=== PATIENT | male | born 1950 | race Caucasian/White ===

== ENCOUNTER → 2018-08-20 14:32 | Outpatient (CLI) | payer MEDICARE, OTHER, SELFPAY | PROVIDERS: PCP Family Medicine; Visit Provider Family Medicine | DX: R01.1 Cardiac murmur, unspecified (principal) | CPT/HCPCS: 93306 ==

== ENCOUNTER → 2020-04-08 15:00 | Outpatient (CLI) | payer MEDICARE, OTHER, SELFPAY ==
--- NOTE | 2020-04-08 15:26 | CT_ITS ---
PROCEDURE: CT SHOULDER RT WO CON CLINICAL HISTORY: RT SHOULDER PAIN right shoulder pain x 6 months no injury no prior COMPARISON: No exams were available for comparison TECHNIQUE: Axial images obtained with sagittal and coronal reformats. All CT scans at the facility use one or more dose reduction, viz: automated exposure control, ma/kV adjustment per patient size (including targeted exams where dose is matched to indication, i.e. head), or iterative reconstruction technique. FINDINGS: No fracture or dislocation. No lytic or blastic change. There are mild osteoarthritic changes of the glenohumeral joint. There is slightly high riding humeral head with subacromial stenosis. This may be seen with rotator cuff disease. Rotator cuff is not adequately evaluated on this exam and may be better evaluated with MRI or CT arthrography if clinically desired. No large effusions. No soft tissue masses. The acromioclavicular joint has an unremarkable appearance. IMPRESSION: 1. No acute fracture. 2. Mild subacromial stenosis which could be seen with rotator cuff disease which could be better evaluated with MRI or CT arthrography 3. Mild osteoarthritic change of the glenohumeral joint Dictated by: Lee Tripathi MD 04/10/2020 08:48 Lee Tripathi MD in [place] 04/10/2020 08:48
== END ==
PROVIDERS: PCP Family Medicine; Visit Provider Family Medicine
DX: M25.511 Pain in right shoulder (principal)
CPT/HCPCS: 73200

== ENCOUNTER → 2020-05-12 16:59 | Outpatient (CLI) | payer MEDICARE, OTHER, SELFPAY ==
--- NOTE | 2020-05-12 17:10 | MR_ITS ---
PROCEDURE: MR SHOULDER RT WO CON CLINICAL INDICATION: CHRONIC RT SHOULDER PAIN CHRONIC RIGHT SHOULDER PAIN X7-8 MONTHS, NO INJURY. PRIOR CT 04-08-20 COMPARISON: CT CT SHOULDER RT WO CON from 04/08/2020 TECHNIQUE: Routine multiplanar multi echo sequences are performed without gadolinium enhancement. FINDINGS: There is acromioclavicular arthropathy with downsloping acromion. There is thickening the supraspinatus tendon distally with full-thickness tear of the supraspinatus tendon distally.. There are few intact deep fibers posteriorly.. The infraspinatus tendon is slightly thickened with some increased T2 signal distally suggesting partial tear. There is focal increased T2 signal at the greater tuberosity at the infraspinatus insertion. The subscapularis shows some thickening. The teres minor tendon is intact. There is a tear of the anterior glenoid labrum at 3 o'clock position. Bicipital tendon appears in place. A small subchondral cyst is present at the base of the greater tuberosity. IMPRESSION: 1. Full-thickness tear of the supraspinatus tendon distally with some intact deep fibers posteriorly 2. 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 There is a small tear involving the anterior glenoid labrum at the 3 o'clock position. Dictated by: Lee Tripathi MD 05/14/2020 13:29 Lee Tripathi MD in [place] 05/14/2020 13:29
== END ==
PROVIDERS: PCP Family Medicine; Visit Provider Family Medicine
DX: M25.511 Pain in right shoulder (principal)
CPT/HCPCS: 73221

== ENCOUNTER 2020-07-05 08:00 | Outpatient (RCR) | payer MEDICARE, OTHER, SELFPAY | END 2020-08-02 17:00 | disposition home or self-care (01) | LOC: PT.CARL 08:00 | PROVIDERS: PCP Family Medicine; Visit Provider Orthopaedic Surgery | DX: M67.813 Other specified disorders of tendon, right shoulder (principal) | CPT/HCPCS: 97010; 97014; 97033; 97035; 97110; 97140; 97163; G0283 ==

== ENCOUNTER → 2023-02-01 09:09 | Outpatient (CLI) | payer MEDICARE, OTHER, SELFPAY ==
--- NOTE | 2023-02-01 09:15 | XR_ITS ---
FINAL REPORT CLINICAL HISTORY: RT HEEL PAIN COMPARISON: None FINDINGS: AP, oblique and lateral views of the right foot were obtained. There is no prior exam for comparison. There is no acute fracture or dislocation. The joint spaces are preserved. Soft tissues are normal. There is a prominent inferior calcaneal spur present. IMPRESSION: No acute osseous abnormality of the right foot. Prominent inferior calcaneal spur. Reviewed, Interpreted and Dictated by Liat Pack MD Transcribed by Zaria Rod Authenticated and [facility]
== END ==
PROVIDERS: PCP Family Medicine; Visit Provider Family Medicine
DX: M72.2 Plantar fascial fibromatosis (principal)
CPT/HCPCS: 73630

== ENCOUNTER 2023-05-10 07:58 | Outpatient (CLI) | payer MEDICARE, OTHER, SELFPAY ==
[2023-05-10 09:21] LABS: Blood Urea Nitrogen 19 mg/dl (9-20); Estimated Glomerular Filt Rate 73 ml/min (>60); GFR (African American) 89 ML/MIN (>60)
== END 2023-05-10 23:59 ==
LOC: LAB 08:01
PROVIDERS: PCP Nurse Practitioner; Visit Provider Nurse Practitioner
DX: Z01.812 Encounter for preprocedural laboratory examination (principal)
CPT/HCPCS: 36415; 82565; 84520

== ENCOUNTER 2023-05-13 13:41 | Outpatient (CLI) | payer MEDICARE, OTHER, SELFPAY ==
--- NOTE | 2023-05-13 13:46 | CT_ITS ---
FINAL REPORT TECHNIQUE: Thin section axial CT images were obtained through the neck after intravenous contrast administration. Coronal and sagittal reformats were also obtained. This study was performed with techniques to keep radiation doses as low as reasonably achievable (ALARA). Individualized dose reduction techniques using automated exposure control or adjustment of mA and/or kV according to the patient''s size were employed. CLINICAL HISTORY: LYMPHADENITIS COMPARISON: None FINDINGS: The nasopharynx, oropharynx, hypopharynx and larynx are unremarkable. There is no mass or adenopathy. The thyroid gland is unremarkable. There is bilateral mild mucosal thickening in the maxillary sinuses. Mild cervical degenerative changes present. In the upper thorax there is mild mediastinal adenopathy. There is a left prevascular node measuring 21 mm in size. There is a right paratracheal node seen at the level of the aortic arch measuring 16 mm in size. These may be reactive or may represent neoplasm. There is a 4 mm lateral left upper lobe nodule, noncalcified, seen in image #101. IMPRESSION: No significant cervical adenopathy identified. Upper thoracic adenopathy is seen as described, and the 2 nodes described may be reactive or neoplastic. 4 mm lateral left upper lobe nodule, noncalcified. Would recommend follow-up chest CT in 3 months. Reviewed, Interpreted and Dictated by John Green III, MD Transcribed by Zaria Rod Authenticated and [facility]
[2023-05-13] MEDS: IOPAMIDOL-370 (76%);100ML BOTTLE 75 ML IV (14:23)
[2023-05-13] MEDS: SODIUM CHLORIDE 0.9% 10ML SYR (RAD ONLY) 10 ML IV (14:23)
== END 2023-05-13 23:59 ==
LOC: RAD 13:41
PROVIDERS: PCP Family Medicine; Visit Provider Nurse Practitioner
DX: I88.9 Nonspecific lymphadenitis, unspecified (principal)
CPT/HCPCS: 70491; Q9967

== ENCOUNTER 2023-07-24 10:44 | Outpatient (CLI) | payer MEDICARE, OTHER, SELFPAY ==
--- NOTE | 2023-07-24 10:48 | XR_ITS ---
FINAL REPORT CLINICAL HISTORY: RT RIB PAIN FINDINGS: Two views of the chest were obtained. The heart size and pulmonary vascularity are within normal limits. The mediastinum is normal. No acute pulmonary abnormality is identified. There is no pneumothorax. The bony thorax is intact. IMPRESSION: No active cardiopulmonary disease. Reviewed, Interpreted and Dictated by John Green III, MD Transcribed by Sharda Banegas Authenticated and [facility]
== END 2023-07-24 23:59 ==
PROVIDERS: PCP Family Medicine; Visit Provider Family Medicine
DX: R07.81 Pleurodynia (principal)
CPT/HCPCS: 71046

== ENCOUNTER 2023-08-21 09:15 | Outpatient (CLI) | payer MEDICARE, OTHER, SELFPAY ==
--- NOTE | 2023-08-21 09:28 | CT_ITS ---
FINAL REPORT TECHNIQUE: After the administration of oral and intravenous contrast, axial images were obtained through the abdomen and pelvis by computed tomography. The study was performed with techniques to keep radiation dose as low as reasonably achievable, (ALARA). Individual dose reduction techniques using automated exposure control or adjustment of mA and/or kV according to the patient's size were employed. CLINICAL HISTORY: ABD PAIN,DAVID FLANK PAIN pain along anterior portion of diaphragm COMPARISON: None FINDINGS: Abdomen: The lung bases are clear. The liver parenchyma is homogeneous. The gallbladder is present. The spleen, pancreas, and adrenals appear unremarkable. There is a benign-appearing cyst in the lower pole of the right kidney measuring 3.6 x 2.8 cm in size. The aorta is normal in caliber. There is no free fluid or adenopathy. Pelvis: The appendix is normal in appearance. The urinary bladder is unremarkable. There is no free fluid or adenopathy. There is moderate enlargement of the prostate gland. IMPRESSION: Benign appearing cyst lower pole of the right kidney as described. Moderate enlargement of the prostate gland. Reviewed, Interpreted and Dictated by Jona Landa MD Transcribed by Zaria Rod Authenticated and [facility]
--- NOTE | 2023-08-21 09:31 | CT_ITS ---
FINAL REPORT TECHNIQUE: Routine axial images were obtained from the lung apices to below the diaphragm following IV contrast administration. Individualized dose reduction techniques using automated exposure control or adjustment of the mA and/or kV according to the patient size were employed. CLINICAL HISTORY: LYMPHADENITIS,ENLARGED LUMPH NODES pain along diaphragm COMPARISON: None FINDINGS: No acute lung disease is present. No pleural or pericardial effusion is seen. There are multiple moderately enlarged mediastinal lymph nodes noted, and an enlarged prevascular node measuring 2.3 cm in size, and a subcarinal node measuring 2.8 cm in size. No confluent infiltrates are identified. No focal nodules are present. No pleural or pericardial effusions are noted. No axillary adenopathy is present. There is mild scarring present at the lung bases. IMPRESSION: Multiple moderately enlarged mediastinal lymph nodes as described, measuring up to 2.8 cm in size. Would recommend follow-up chest CT in 1 to 3 months for further evaluation. Otherwise unremarkable CT examination of the chest. Reviewed, Interpreted and Dictated by Jona Landa MD Transcribed by Zaria Rod Authenticated and [facility]
[2023-08-21] MEDS: BARIUM SULFATE(READI-CAT2);450ML BOTTLE 450 ML PO (09:49)
[2023-08-21] MEDS: SODIUM CHLORIDE 0.9% 10ML SYR (RAD ONLY) 10 ML IV (09:50)
[2023-08-21] MEDS: IOPAMIDOL-370 (76%);100ML BOTTLE 75 ML IV (09:50)
== END 2023-08-21 23:59 ==
LOC: RAD 09:15
PROVIDERS: PCP Family Medicine; Visit Provider Family Medicine
DX: R10.9 Unspecified abdominal pain (principal)
CPT/HCPCS: 71260; 74177; Q9967

== ENCOUNTER 2024-10-27 07:51 | Day surgery (SDC) | payer MEDICARE, OTHER, SELFPAY ==
--- NOTE | 2024-10-26 13:47 | SUR.PREOP ---
1345:Pt stated that he took his prep a day early. Spoke with JANET in Dr. Talbot's office and was told he could take a dose of mag citrate tonight and continue his clear liquid diet. Message relayed to pt. Will proceed with colonoscopy in the AM.
[2024-10-27 08:17] VITALS: BP 162/74; PULSE 64; RESP 18; TEMP 36.3; O2SAT 97
[2024-10-27 08:28] VITALS: BMI 39.3
[2024-10-27] MEDS: LACTATED RINGERS 1000ML 1,000 ML 50 ML IV (08:31)
--- NOTE | 2024-10-27 08:32 | EXP.ANES.CKL ---
[facility] Disclaimer: The information contained in this section may have been updated after the patient was seen, as this information can be updated by other users. Medical History Sleep apnea Hypercholesterolemia Hypertension Family History Mother Heart disease Social History (Updated 10/27/24 @ 08:18 by Susan Trevizo RN) Smoking Status: Never smoker alcohol intake: never substance use type: denies use current occupational status: employed Travel in the last 8 weeks?: None [facility] Anesthesia Checklist Patient Identification Patient Identification: Arm Band Structural Data Admitted From: Home Planned Operative Procedure/s: Colonoscopy Consent for Planned Operative Procedure(s) Verified: Yes Verified Documents: Surgical Consent and History and Physical NPO Status Verified Time NPO: 00:00 Additional verifications Anesthesia Reactions: No Airway Assessment Mallampati Score:: Class II C-Spine Mobility Assessed: Yes TMJ Mobility Assessed: Yes Dentition: Good Dentition Neurological Assessment Level of Consciousness: Awake, Alert and Appropriate Anesthesia Plan Anesthesia Risk discussed: Yes Anesthesia Plan: Verified ASA Class: II Anesthesia Type: MAC
--- NOTE | 2024-10-27 08:51 | EXP.GEN.HP ---
HPI HPI HPI: This is a 74-year-old gentleman who presents for colonoscopy. He reports a recent [facility] positive study. He states that he has undergone colonoscopy in 2 separate occasions. He reports no history of polyps. [facility] Disclaimer: The information contained in this section may have been updated after the patient was seen, as this information can be updated by other users. Medical History (Updated 10/27/24 @ 08:54 by Terry Talbot MD) Sleep apnea Hypercholesterolemia Hypertension Family History Heart disease Mother Social History (Updated 10/27/24 @ 08:41 by Chemo Pratt CRNA) Smoking Status: Never smoker alcohol intake: never substance use type: denies use current occupational status: employed Travel in the last 8 weeks?: None Have you lived/traveled outside US in past 30 days?: No Contact w/someone who lives/traveled outside US past 30 days?: No Exposure to someone with infectious disease in past 14 days?: No Do you have a fever (greater than 100.4 F or 38 C)?: No Have you tested positive for COVID-19?: No Exposed to someone with COVID-19 in past 14 days?: No Do you have a sore throat?: No Do you have a cough?: No Do you have any weakness?: No Are you experiencing any nausea/vomitting?: No Do you have any diarrhea?: No Are you experiencing any unusual bleeding?: No Do you have any muscle aches/pain?: No Do you have any abdominal pain?: No Are you experiencing loss of taste or smell?: No Review of Systems Review of Systems Review of systems:: pertinent systems reviewed and negative unless documented below Meds Home Medications and Allergies Home Medications ?Medication ?Instructions ?Recorded ?Confirmed ?Type sodium sul 1.479 gram-potas ch See Rx Instructions PO PER PKG DIR 10/22/24 Rx 0.188 gram-magnes sul 0.225 gram #24 tabs tablet (Sutab) amlodipine 5 mg tablet 5 mg PO DAILY 10/27/24 10/27/24 History aspirin 325 mg capsule 325 mg PO DAILY 10/27/24 10/27/24 History atorvastatin 40 mg tablet 40 mg PO DAILY 10/27/24 10/27/24 History carvedilol 12.5 mg tablet 12.5 mg PO DAILY 10/27/24 10/27/24 History chlorthalidone 25 mg tablet 25 mg PO DAILY 10/27/24 10/27/24 History hydrochlorothiazide 12.5 mg capsule 12.5 mg PO DAILY 10/27/24 10/27/24 History losartan 100 mg tablet 100 mg PO DAILY 10/27/24 10/27/24 History New Prescriptions to Start Prescriptions: Allergies Allergy/AdvReac Type Severity Reaction Status Date / Time shellfish derived Allergy Rash Verified 10/27/24 08:32 Exam Data for Last 24 hours I & O for Last 24 hours: Intake & Output 10/24/24 10/25/24 10/26/24 10/27/24 11:59 11:59 11:59 11:59 Weight 290 lb Constitutional Constitutional: no acute distress *Routine HEENT Exam Head: Present normocephalic Eye: Present EOMI ENT: Present mucous membranes moist *Routine Neck Exam Neck: Present full ROM *Routine Respiratory Exam Respiratory: Absent respiratory distress *Routine Cardiovascular Exam Cardiovascular: Absent tachycardia *Routine Abdominal Exam Abdominal: Present soft *Routine Rectal Exam Rectal:: deferred *Routine Genitalia Exam Genitalia:: deferred *Routine Extremities Exam Extremities: Present full ROM *Routine Skin Exam Skin: Absent erythema *Routine Neurological Exam Neurological: Present alert Assessment and Plan *Assessment and plan (1) Colon cancer screening: Problem Comment: Recent [facility] positive study Status: Acute Category: Medical Code(s): Z12.11 - Encounter for screening for malignant neoplasm of colon Plan: Colonoscopy today I have discussed the risks and benefits including, but not limited to: Bleeding Infection Damage to surrounding tissue Inherent risks of sedation The patient agrees to proceed.
--- NOTE | 2024-10-27 08:55 | HMH.SCOPE ---
Procedure: Date: 10/27/24 Patient Date of :: 1950 Procedure Performed:: Colonoscopy Indications:: Colon cancer screening (recent positive [facility] study) Performing Provider:: Terry Talbot MD Referring Provider:: . Sedation:: Monitored anesthesia care Procedure:: After informed consent was obtained the patient was taken to the endoscopy suite. Sedation ensued after the patient was transferred to the left lateral decubitus position. Pulse, blood pressure, and oxygen saturation were monitored throughout the procedure. Digital rectal exam revealed no significant abnormality. The colonoscope was placed in position. The entire colon was evaluated. The colonoscope was carefully removed and the patient was transferred to recovery in stable condition. Please see findings and specimens below for detail. Findings:: Bowel preparation fairly poor Fairly profound spasticity/lack of relaxation Hemorrhoidal tags/cushions Specimens:: None Recommendations:: Fairly short-term repeat colonoscopy warranted secondary to limited bowel preparation and spasticity/lack of relaxation. Consider gastroenterology consultation secondary to possible chronic constipation. If gastroenterology consultation completed, repeat colonoscopy deferred to their service. Complications:: No immediate with the exception of limited bowel preparation Estimated blood obtained (mL): 0 Colonoscopy Component Colonoscopy Component Was a colonoscopy performed during today's procedure?: Yes Recommended follow up colonoscopy of at least 10 years?: No If no, follow up colonoscopy recommended in ___ years?: (See above) Reason for not recommending >/= 10 yr follow-up interval?: (See above)
[2024-10-27 09:24] VITALS: BP 112/58; PULSE 60; RESP 20; TEMP 36.2; O2SAT 94
[2024-10-27 09:34] VITALS: BP 123/58; PULSE 52; RESP 18; O2SAT 97
[2024-10-27 09:44] VITALS: BP 142/48; PULSE 58; RESP 18; O2SAT 96
[2024-10-27 09:54] VITALS: BP 112/71; PULSE 48; RESP 18; O2SAT 94
== END 2024-10-27 09:54 | disposition home or self-care (01) ==
PROVIDERS: PCP Nurse Practitioner; Visit Provider Surgery
PROC: 0DJD8ZZ Inspection of Lower Intestinal Tract, Via Natural or Artificial Opening Endoscopic (ICD-10-PCS; CPT 45378; principal; 2024-10-27 09:30)
DX: Z12.11 Encounter for screening for malignant neoplasm of colon (principal); E78.00 Pure hypercholesterolemia, unspecified; I10 Essential (primary) hypertension; Z79.82 Long term (current) use of aspirin; Z79.899 Other long term (current) drug therapy
CPT/HCPCS: 45378; J2003; J2704; J7120

== ENCOUNTER 2025-01-20 09:09 | Day surgery (SDC) | payer MEDICARE, OTHER, SELFPAY ==
--- NOTE | 2025-01-17 11:46 | EXP.HP ---
History of Present Illness *Admission Date: 01/20/25 *History of present illness: Mr. Joseph is a 74-year-old gentleman who is here for screening colonoscopy secondary to a positive Cologuard. The patient does have some chronic constipation. He recently had a colonoscopy (10/27/2024) with Dr. Terry Talbot M.D. and had fairly poor bowel preparation with poor visibility because of the preparation as well as spasm and tortuosity making the examination inadequate. The patient also notes bright red blood per rectum at times from hemorrhoids. The patient does state that his prior colonoscopy had been 7 or 8 years ago. He reports no abdominal pain, bloating or gassiness. He reports no weight loss or family history of colon cancer. He does report some bowel irregularity from hard to soft stools and incomplete defecation with excessive wiping. [facility] Disclaimer: The information contained in this section may have been updated after the patient was seen, as this information can be updated by other users. Medical History Sleep apnea Hypercholesterolemia Hypertension Surgical History History of colonoscopy Family History Mother Heart disease Social History (Updated 01/20/25 @ 09:55 by Susan Trevizo RN) Smoking Status: Never smoker alcohol intake: never substance use type: denies use current occupational status: retired Travel in the last 8 weeks?: None Have you lived/traveled outside US in past 30 days?: No Contact w/someone who lives/traveled outside US past 30 days?: No Exposure to someone with infectious disease in past 14 days?: No Do you have a fever (greater than 100.4 F or 38 C)?: No Have you tested positive for COVID-19?: No Exposed to someone with COVID-19 in past 14 days?: No Do you have a sore throat?: No Do you have a cough?: No Do you have any weakness?: No Are you experiencing any nausea/vomitting?: No Do you have any diarrhea?: No Are you experiencing any unusual bleeding?: No Do you have any muscle aches/pain?: No Do you have any abdominal pain?: No Are you experiencing loss of taste or smell?: No Other Medical History Have you received the Pneumonia Vaccine: Yes Review of Systems Review of Systems Review of systems (narrative): Negative *Cardiovascular Comments: Negative *Gastrointestinal Comments: Negative *Genitourinary Comments: Negative *Musculoskeletal Comments: Negative *Neurologic Comments: Negative Meds Home Medications and Allergies Home Medications ?Medication ?Instructions ?Recorded ?Confirmed ?Type amlodipine 5 mg tablet 5 mg PO DAILY 10/27/24 01/19/25 History aspirin 325 mg capsule 325 mg PO DAILY 10/27/24 01/19/25 History atorvastatin 40 mg tablet 40 mg PO DAILY 10/27/24 01/19/25 History chlorthalidone 25 mg tablet 25 mg PO DAILY 10/27/24 01/19/25 History hydrochlorothiazide 12.5 mg capsule 12.5 mg PO DAILY 10/27/24 01/19/25 History losartan 100 mg tablet 100 mg PO DAILY 10/27/24 01/19/25 History carvedilol 12.5 mg tablet 12.5 mg PO BID 11/18/24 01/19/25 History levocetirizine 5 mg tablet (24HR 5 mg PO DAILY 11/18/24 01/19/25 History Allergy Relief) potassium chloride 20 mEq 20 meq PO DAILY 11/18/24 01/19/25 History tablet,extended release(part/cryst) sodium,potassium,mag sulfates 17.5 See Rx Instructions PO .COMPLEX 01/06/25 Rx gram-3.13 gram-1.6 gram oral soln #354 mL (Suprep Bowel Prep Kit) New Prescriptions to Start Prescriptions: Allergies Allergy/AdvReac Type Severity Reaction Status Date / Time shellfish derived Allergy Rash Verified 01/20/25 10:02 Exam *Routine HEENT Exam Head: Present normocephalic Eye: Present EOMI and PERRL ENT: Present mucous membranes moist *Routine Neck Exam Neck: Present supple *Routine Respiratory Exam Respiratory: Present CTA bilaterally *Routine Cardiovascular Exam Cardiovascular: Present RRR *Routine Abdominal Exam Abdominal: Present soft and normoactive bowel sounds; Absent tenderness *Routine Rectal Exam Rectal:: deferred *Routine Genitalia Exam Genitalia:: deferred *Routine Extremities Exam Extremities: Absent cyanosis, clubbing or edema *Routine Skin Exam Skin: Present warm; Absent rash *Routine Neurological Exam Neurological: Present alert and oriented X3 Assessment and Plan *Assessment and plan (1) Positive colorectal cancer screening using Cologuard test: Status: Acute Category: Medical Code(s): R19.5 - Other fecal abnormalities (2) Colon cancer screening: Problem Comment: Recent [facility] positive study Status: Acute Category: Medical Code(s): Z12.11 - Encounter for screening for malignant neoplasm of colon Plan A/P: 1. Positive Cologuard test is the preprocedural diagnosis. The patient will be anesthetized/sedated using MAC sedation. The patient has been seen and examined. Cardiac and lung assessment prior to the examination is stable. Proceed with planned screening colonoscopy.
[2025-01-19 09:00] VITALS: BMI 39.3
--- NOTE | 2025-01-20 07:15 | HMH.PROCNOTE ---
[facility] Procedure Note Date: 01/20/25 Time: 11:48 Procedure Note:: Colonoscopy Procedure Report: Colonoscopy with monopolar ablation/coagulation of internal hemorrhoids Endoscopist: Amauri Christianson II, MD Referring physician: Roque Ramirez M.D. Date of Procedure: January 20, 2025 Equipment: [facility] [id number] adult colonoscope Sedation: MAC sedation Indication: Mr. Joseph is a 74-year-old gentleman who is here for screening colonoscopy secondary to a positive Cologuard. The patient does have some chronic constipation. He recently had a colonoscopy (10/27/2024) with Dr. Terry Talbot M.D. and had fairly poor bowel preparation with poor visibility because of the preparation as well as spasm and tortuosity making the examination inadequate. The patient also notes bright red blood per rectum at times from hemorrhoids. The patient does state that his prior colonoscopy had been 7 or 8 years ago. He reports no abdominal pain, bloating or gassiness. He reports no weight loss or family history of colon cancer. He does report some bowel irregularity from hard to soft stools and incomplete defecation with excessive wiping. The patient did take MiraLAX plus Konsyl but this resulted in some diarrhea. Procedure: Prior to the procedure, a history and physical exam was performed, and patient's medications and allergies were reviewed. The risks, benefits and alternatives of the sedation and procedure were discussed with the patient. All questions were answered and informed consent was obtained. The patient was brought to the procedure room. Patient identification and proposed procedure were verified by the physician and the nurse. The patient was placed in a left lateral decubitus position and the scope was passed under direct vision. Throughout the procedure, the patient's blood pressure, pulse, and oxygen saturations were monitored continuously. The colonoscopy was accomplished without difficulty. The patient tolerated the procedure well. Findings: On digital rectal examination there was normal rectal tone. There were no external hemorrhoids. The colonoscope was introduced through the anal canal to the rectum and advanced to the cecum. The ileocecal valve and appendiceal orifice were identified. The scope was advanced a short distance into the ileum which appeared grossly normal. The scope was then withdrawn into the colon. The cecum, ascending, transverse, descending, sigmoid and rectum were grossly normal. There were no mucosal abnormalities identified. Upon retroflexion within the rectum there were grade 2 internal hemorrhoids. The 3 columns of hemorrhoids were ablated/coagulated using monopolar ablation to destruction. The preparation was good throughout with [place] Preparation Score of 8 out of 9. The cecal time was 12 minutes. Impression: 1. Normal colonoscopy with intubation of the terminal ileum 2. Grade 2 internal hemorrhoids Plan: I do suspect that the positive Cologuard was related to some blood detected from the internal hemorrhoids. He will not require any further preventative/surveillance colonoscopy. I would consider fiber supplementation (Konsyl) without MiraLAX on a maintenance basis.
[2025-01-20 09:54] VITALS: BP 159/55; PULSE 48; RESP 18; TEMP 36.3; O2SAT 95; BMI 39.3
[2025-01-20] MEDS: LACTATED RINGERS 1000ML 1,000 ML 50 ML IV (10:06)
--- NOTE | 2025-01-20 11:28 | P.PNANES_ITS ---
[facility] Disclaimer: The information contained in this section may have been updated after the patient was seen, as this information can be updated by other users. Medical History Sleep apnea Hypercholesterolemia Hypertension Surgical History History of colonoscopy Family History Mother Heart disease Social History (Updated 01/20/25 @ 09:55 by Susan Trevizo RN) Smoking Status: Never smoker alcohol intake: never substance use type: denies use current occupational status: retired Travel in the last 8 weeks?: None Have you lived/traveled outside [place] in past 30 days?: No Contact w/someone who lives/traveled outside [place] past 30 days?: No Exposure to someone with infectious disease in past 14 days?: No Do you have a fever (greater than 100.4 F or 38 C)?: No Have you tested positive for COVID-19?: No Exposed to someone with COVID-19 in past 14 days?: No Do you have a sore throat?: No Do you have a cough?: No Do you have any weakness?: No Are you experiencing any nausea/vomitting?: No Do you have any diarrhea?: No Are you experiencing any unusual bleeding?: No Do you have any muscle aches/pain?: No Do you have any abdominal pain?: No Are you experiencing loss of taste or smell?: No [facility] Anesthesia Checklist Patient Identification Patient Identification: Verbal (Name & ) Structural Data Admitted From: Home Planned Operative Procedure/s: colonoscopy Consent for Planned Operative Procedure(s) Verified: Yes NPO Status Verified Time NPO: 00:00 Additional verifications Anesthesia Reactions: No Airway Assessment Mallampati Score:: Class III C-Spine Mobility Assessed: Yes TMJ Mobility Assessed: Yes Dentition: Partials Neurological Assessment Level of Consciousness: Awake, Alert and Appropriate Anesthesia Plan Anesthesia Risk discussed: Yes Anesthesia Plan: Verified ASA Class: III Anesthesia Type: MAC
[2025-01-20 11:50] VITALS: BP 91/58; PULSE 55; RESP 18; TEMP 36.2; O2SAT 95
[2025-01-20 12:00] VITALS: BP 113/61; PULSE 50; RESP 18; O2SAT 94
[2025-01-20 12:10] VITALS: BP 115/62; PULSE 49; RESP 18; O2SAT 95
[2025-01-20 12:20] VITALS: BP 125/66; PULSE 51; RESP 18; TEMP 36.2; O2SAT 94
== END 2025-01-20 12:23 | disposition home or self-care (01) ==
PROVIDERS: PCP Family Medicine; Visit Provider Internal Medicine Gastroenterology
PROC: 0DJD8ZZ Inspection of Lower Intestinal Tract, Via Natural or Artificial Opening Endoscopic (ICD-10-PCS; CPT 45378; principal; 2025-01-20 11:00)
DX: Z12.11 Encounter for screening for malignant neoplasm of colon (principal); K64.1 Second degree hemorrhoids; E78.00 Pure hypercholesterolemia, unspecified; I10 Essential (primary) hypertension; G47.30 Sleep apnea, unspecified; Z91.013 Allergy to seafood; Z79.82 Long term (current) use of aspirin; Z79.899 Other long term (current) drug therapy
CPT/HCPCS: 45388; J2003; J2704; J7120